=== PATIENT | male | born 1965 | race Two or more races ===

== ENCOUNTER 2019-12-10 19:17 | Emergency (ER) | payer MEDICAID ==
[~2019-12-10] VITALS: Ht 185.4 cm; Wt 79.0 kg
[2019-12-10 20:56] VITALS: BP 98/67
== END 2019-12-10 20:58 | disposition home or self-care (01) ==
LOC: ER 19:44
DX: J44.1 Chronic obstructive pulmonary disease with (acute) exacerbation (principal); F17.210 Nicotine dependence, cigarettes, uncomplicated; Z71.6 Tobacco abuse counseling; Z88.0 Allergy status to penicillin
CPT/HCPCS: 99283; 99406

== ENCOUNTER 2020-10-05 01:09 | Emergency (ER) | payer MEDICAID, OTHER ==
[~2020-10-05] VITALS: Ht 188 cm; Wt 75.0 kg
[2020-10-05] MEDS ORDERED: CLIN150C15 MT (05:29)
[2020-10-05] MEDS ORDERED: CLINDAMYCIN HCL 150MG CAPSULE PO ONE (05:30)
[2020-10-05 06:15] VITALS: BP 110/69
== END 2020-10-05 06:32 | disposition home or self-care (01) ==
LOC: ER 01:09
DX: L03.115 Cellulitis of right lower limb (principal); Z88.0 Allergy status to penicillin
CPT/HCPCS: 99283

== ENCOUNTER 2022-10-03 01:44 | Emergency (ER) | payer OTHER ==
[~2022-10-03] VITALS: Ht 188 cm; Wt 62.0 kg
[~2022-10-03 01:44] MED LIST: CLIN-116 MT; LEVO750T68 MT
[2022-10-03 01:48] VITALS: PULSE 91; RESP 16
[2022-10-03 01:52] VITALS: BP 108/79; O2SAT 100
[2022-10-03 06:30] VITALS: TEMP 98.8
[2022-10-03] MEDS ORDERED: ACETAMINOPHEN 325MG TABLET PO ONE (06:30)
[2022-10-03 06:48] LABS: BASOPHILS % 0.4 % (0.0-2.0); EOSINOPHILS % 1.1 % (0.0-5.0); HEMATOCRIT. 42.7 % (42.0-52.0); HEMOGLOBIN. 14.8 g/dL (14.0-18.0); MEAN CORPUSCULAR HEMOGLOBIN 29.7 pg (28.0-32.0); MEAN CORPUSCULAR VOLUME 85.6 fL (80.0-94.0); MEAN PLATELET VOLUME 7.8 fl (7.4-10.4); MONOCYTES % 8.1 % (2.0-8.0); NEUTROPHILS % 73.4 % (40.0-76.0); PLATELET 166 x1000/uL (130-400); RED BLOOD CELL COUNT 4.99 mill/uL (4.7-6.1); RED CELL DISTRIBUTION WIDTH 13.1 % (11.6-14.6)
[2022-10-03 07:02] LABS: CHLORIDE 103 mEq/L (98-107)
[2022-10-03] MEDS ORDERED: DOXY100C5 MT (19:40)
== END 2022-10-03 04:06 | disposition left against medical advice (07) ==
LOC: ER 01:44
DX: R51.9 Headache, unspecified (principal); Z88.0 Allergy status to penicillin
CPT/HCPCS: 36415; 80053; 85025; 99283

== ENCOUNTER 2022-10-03 16:14 | Emergency (ER) | payer OTHER ==
[~2022-10-03] VITALS: Ht 188 cm; Wt 77.0 kg
[2022-10-03 16:49] VITALS: O2SAT 99
[2022-10-03] MEDS ORDERED: KETOROLAC 30MG/ML VIAL IM ONE (19:30)
[2022-10-03] MEDS ORDERED: DOXY100C5 MT (19:40)
[2022-10-03 20:00] VITALS: BP 152/71; PULSE 100; RESP 18; TEMP 98.1
== END 2022-10-03 20:01 | disposition home or self-care (01) ==
LOC: ER 18:42
DX: J32.0 Chronic maxillary sinusitis (principal)
CPT/HCPCS: 96372; 99283; J1885; Z7610